=== PATIENT | female | born 1945 | race Caucasian/White ===

== ENCOUNTER 2024-04-12 14:02 | Emergency (ER) | payer MEDICARE, MEDICAID ==
[~2024-04-12] VITALS: Ht 167.6 cm; Wt 76.0 kg
[2024-04-12] MEDS: meclizine 12.5mg tablet PO ONE (15:31)
[2024-04-12 16:09] VITALS: BP 145/81; PULSE 79; RESP 16; TEMP 98.2; O2SAT 97
== END 2024-04-12 16:13 | disposition home or self-care (01) ==
LOC: ER 14:03
DX: R42 Dizziness and giddiness (principal); H93.19 Tinnitus, unspecified ear; Z88.5 Allergy status to narcotic agent
CPT/HCPCS: 93005; 99284; J8597